=== PATIENT | female | born 1960 | race Two or more races ===

== ENCOUNTER 2024-05-14 09:30 | Emergency (ER) | payer MEDICAID, SELFPAY ==
--- NOTE | 2024-05-14 09:36 | EKG_ITS ---
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
[2024-05-14 09:59] VITALS: BP 185/97; PULSE 71; RESP 19; TEMP 36.6; O2SAT 97; BMI 35.4
--- NOTE | 2024-05-14 10:05 | XR_ITS ---
Examination: AP lateral chest 2 views Technique: Upright AP lateral chest 2 views Exam date and time: May 14, 2024 1015 hrs. Indications: Onset chest pain today Findings: Normal heart size No lobar pneumonia No pulmonary edema Moderate osteopenia Impression: No active disease
[2024-05-14 10:50] LABS: Basophils % (Auto) 1 % (0-2.5); Eosinophils # (Auto) 0.1 Thou/mm3 (0.0-0.5); Eosinophils % (Auto) 1 % (0-10); Hematocrit 42.2 % (36.0-46.0); Hemoglobin 14.1 g/dL (12.0-16.0); Immature Granulocytes % (Auto) 0 % (0-0); Immature Granulocytes Auto 0.02 Thou/mm3 (0.00-0.00); Lymphocytes # (Auto) 1.9 Thou/mm3 (1.0-4.8); Lymphocytes % (Auto) 30 % (10-50); Mean Corpuscular HGB Conc 33.4 g/dl (31.0-37.0); Mean Corpuscular Hemoglobin 30.9 pg (25.0-35.0); Mean Corpuscular Volume 92 fL (80-100); Monocytes # (Auto) 0.4 Thou/mm3 (0.0-0.8); Monocytes % (Auto) 6 % (0-12); Neutrophils # (Auto) 3.9 Thou/mm3 (1.8-7.7); Neutrophils % (Auto) 62 % (37-80); Nucleated Red Blood Cell % 0 /100 WBC (0); Platelet Count 204 Thou/mm3 (140-440); RDW Standard Deviation 43.4 fL (36.4-46.3); Red Blood Count 4.57 Miln/mm3 (4.00-5.20); White Blood Count 6.3 Thou/mm3 (3.6-11.0)
[2024-05-14 11:12] LABS: B-Type Natriuretic Peptide 43 pg/mL (0-100)
[2024-05-14 11:17] LABS: Alanine Aminotransferase 20 U/L (10-49); Albumin/Globulin Ratio 1.9 (1.2-2.2); Alkaline Phosphatase 94 U/L (46-116); Anion Gap 6 (7-16); Aspartate Amino Transferase 21 U/L (0-34); BUN/Creatinine Ratio 16 Ratio (12-20); Bilirubin,Total 0.6 mg/dL (0.3-1.2); Blood Urea Nitrogen 11 mg/dL (9-23); Calcium 9.5 mg/dL (8.3-10.6); Calcium (Corrected) 9.5 mg/dL (8.5-10.1); Carbon Dioxide 27.9 mMol/L (20.0-31.0); Chloride 105 mMol/L (98-107); Creatinine (Component) 0.7 mg/dL (0.6-1.3); Estimated Creatinine Clearance 74.7 mL/min (>60); Globulin 2.6 gm/dL (2.3-3.5); Glucose 97 mg/dL (74-106); Osmolality,Calculated 276 (275-295); Potassium 3.9 mMol/L (3.4-5.1); Sodium 139 mMol/L (136-145); Total Protein 7.6 gm/dL (5.7-8.2); Troponin I < 0.002 ng/mL (0.0-0.045); eGFR > 60 See Note
--- NOTE | 2024-05-14 11:54 | EDNOTE_ITS ---
<Statement entered by Abi Weinberg MD - 05/22/24 16:19> As co-signing physician, I was present and available for consult prn. I concur with the plan and care as documented by the midlevel provider. ED Chest Pain RME/HPI General Chief Complaint: Chest Pain Stated Complaint: CHEST/BACK PAIN FOR 2 DAYS Time Seen by Provider: 05/14/24 09:48 Arrival date/time: 05/14/24 09:30 64-year-old female presents emergency department complains of upper back pain and chest pain after exercising 2 days ago patient reports that she was lifting weights in the gym. Patient reports her pain is worse with movement patient reports no shortness of breath headache dizziness weakness Limitations: no limitations Related Data Home Medications ?Medication ?Instructions ?Recorded ?Confirmed lisinopril 20 mg tablet 20 mg PO QDAY ##0 06/30/13 08/23/21 atorvastatin 40 mg tablet 40 mg PO QDAY 08/23/21 08/23/21 cetirizine 10 mg tablet 10 mg PO QDAY 08/23/21 08/23/21 docusate sodium 100 mg capsule 100 mg PO BID 08/23/21 08/23/21 ergocalciferol (vitamin D2) 1,250 1,250 mcg PO QWEEK 08/23/21 08/23/21 mcg (50,000 unit) capsule Previous Rx's ?Medication ?Instructions ?Recorded methylprednisolone 4 mg tablets in See Rx Instructions .Route 11/16/21 a dose pack (Medrol (Rikki)) .COMPLEX #21 tabs ibuprofen 600 mg tablet 600 mg PO Q6H PRN pain #30 tabs 12/30/22 lidocaine 5 % topical patch 1 patch topical Q24H #6 ea 12/30/22 methocarbamol 750 mg tablet 750 mg PO Q8H PRN pain #20 tabs 12/30/22 Allergies Allergy/AdvReac Type Severity Reaction Status Date / Time ergotamine Allergy Severe HEART Verified 05/14/24 09:34 PALPITATIONS Review of Systems Review of Systems Systems Reviewed: All systems reviewed, normal except as documented Constitutional Constitutional: Reports system reviewed and no additional complaints, except as documented, Denies fever(s) and Denies headache(s) Eyes Eyes: Reports system reviewed and no additional complaints, except as documented and Denies blurry vision ENT Ears, Nose, Mouth, and Throat: Reports system reviewed and no additional complaints, except as documented, Denies headache(s), Denies nasal congestion and Denies nasal discharge Cardiovascular Cardiovascular: Reports system reviewed and no additional complaints, except as documented, Reports chest pain and Denies dyspnea Respiratory Respiratory: Reports system reviewed and no additional complaints, except as documented, Denies chest congestion, Denies cough and Denies dyspnea Gastrointestinal Gastrointestinal: Reports system reviewed and no additional complaints, except as documented and Denies abdominal pain Integumentary/Breasts Skin/Breast: Reports system reviewed and no additional complaints, except as documented and Denies rash Neurologic Neurologic: Reports system reviewed and no additional complaints, except as documented, Reports as per HPI and Denies headache(s) Past Medical History Past Medical History NEUROLOGIC: Negative Neurological Disorders CARDIAC: Negative Cardiac Disorders ED Exam General Limitations: Present no limitations General appearance: Present alert and in no apparent distress Head Head exam: Present atraumatic, normocephalic and normal inspection Eye Eye exam: Present normal appearance, PERRL and EOMI; Absent conjunctival injection ENT ENT exam: Present normal exam, normal oropharynx and mucous membranes moist Neck Neck exam: Present normal inspection, full ROM and trachea midline Chest Chest inspection: Present normal inspection and symmetric chest wall rise Respiratory Respiratory exam: Present normal lung sounds bilaterally; Absent respiratory distress Cardiovascular Cardiovascular exam: Present regular rate, normal rhythm and normal heart sounds; Absent bradycardia, tachycardia, irregular rhythm or JVD Abdominal Exam Abdominal exam: Present soft and normal bowel sounds; Absent distention, tenderness, guarding, rebound or rigidity Extremities Exam Extremities exam: Present normal inspection and full ROM Back Exam Back exam: Present normal inspection and full ROM Neurological Exam Neurological exam: Present alert, oriented X3 and CN II-XII intact Psychiatric Psychiatric exam: Present normal affect and normal mood Skin Skin exam: Present warm, dry, intact and normal color Course Quality Measures none Orders Category Date Time Status EKG (ED ONLY) *Do not use* NOW Care 05/14/24 09:36 Completed EKG (ED Only) Stat Exams 05/14/24 09:36 Draft XR chest 2V Stat Exams 05/14/24 10:05 Completed BNP [B-Type Natriuretic Peptide] Stat Lab 05/14/24 10:34 Completed CBC Stat Lab 05/14/24 10:34 Completed Comprehensive Metabolic Panel Stat Lab 05/14/24 10:34 Completed Troponin I Stat Lab 05/14/24 10:34 Completed Vital Signs Vital signs: Vital Signs Temperature 97.9 F 05/14/24 09:59 Pulse Rate 71 05/14/24 09:59 Respiratory Rate 19 05/14/24 09:59 Blood Pressure 185/97 H 05/14/24 09:59 Pulse Oximetry (%) 97 05/14/24 09:59 Oxygen Delivery Method Room Air 05/14/24 09:59 O2 saturation 97% room air within normal limits Procedures -ED EKG Interpretation #1: Date of EK05/14/24 Time of EK:57 Rate: 71 Interpretation: Interpreted by me EKG Impression: Normal sinus rhythm, No acute ST-T changes, No ectopy, No ischemic changes, Normal QRS, Normal intervals and Normal axis Chest Pain MDM Narrative MDM Narrative:: 64-year-old female presents emergency department complains of upper back pain and chest pain after exercising 2 days ago patient reports that she was lifting weights in the gym. Patient reports her pain is worse with movement patient reports no shortness of breath headache dizziness weakness On exam patient well-appearing patient does not appear ill or toxic I suspect this is muscular in nature and not cardiac Chest x-ray obtained lab work obtained no acute emergent findings noted EKG obtained no acute emergent findings noted Troponin is negative Symptoms consistent with muscular pain Patient discharged home in no distress to follow-up with primary care doctor in the next 24 to 48 hours and for any worsening symptoms to return to the ER immediately Patient data External records reviewed:: [facility] previous records Clinical information provided by:: patient Social determinants that could affect healthcare access:: none Patient has the following chronic illnesses:: See history How is presenting disease/condition affected by chronic disease/condition?: uneffected by Evaluation data The following diagnostics were reviewed and interpreted by me:: lab results, radiology exam(s) and EKG tracing(s) Lab and/or radiology exams considered but not ordered:: Labs, radiology, EKG obtained Interpretation Summary: Reviewed by me Medications / Prescriptions Medications or Prescriptions considered but not ordered:: No meds Medication administrations:: No meds Consultations Consultation(s) initiated? (list below): No Diagnosis Chest Pain Differential Diagnosis: atypical chest pain, st elevation myocardial infarction, costochondritis and chest pain Most likely diagnosis given after review of the tests above:: Chest pain Admission Indicated Admission indicated?: not indicated Admission Request Was there a request for admission?: No Disposition Plan Disposition Plan: Discharge Discharge Attestation Discharge Attestation: The patient and all family members were given an opportunity to ask questions and understood the discharge instructions. Discharge instructions specifically effects, indications for sooner follow up or return to the emergency department, and the expected course of current diagnosis. Patient condition: Stable Discharge Plan Plan Patient Disposition: HOME (Self Care) Disposition Comment: Stable Prescriptions/Referrals Prescriptions/Med Rec: No Action lisinopril 20 MG tablet 20 mg PO QDAY Qty: 0 docusate sodium 100 mg capsule 100 mg PO BID Patient Comments: TAKE 1 CAPSULE BY MOUTH TWICE A DAY ergocalciferol (vitamin D2) 1,250 mcg (50,000 unit) capsule 1,250 mcg PO QWEEK Patient Comments: TAKE 1 CAPSULE BY MOUTH ONCE A WEEK atorvastatin 40 mg tablet 40 mg PO QDAY Patient Comments: TAKE 1 TABLET BY MOUTH EVERY DAY cetirizine 10 mg tablet 10 mg PO QDAY Patient Comments: TAKE 1 TABLET BY MOUTH EVERY DAY methylprednisolone [Medrol (Rikki)] 4 mg tablets,dose pack See Rx Instructions .Route .COMPLEX Qty: 21 0RF Rx Instructions: 1 dose pack as directed ibuprofen 600 mg tablet 600 mg PO Q6H PRN (Reason: pain) Qty: 30 0RF methocarbamol 750 mg tablet 750 mg PO Q8H PRN (Reason: pain) Qty: 20 0RF lidocaine 5 % adhesive patch,medicated 1 patch topical Q24H Qty: 6 0RF Rx Instructions: leave on most painful area for up to 12 hrs Problem List Clinical Impression: Chest wall pain Patient/Caregiver Discharge Instructions Education Materials: ED Chest Pain, Noncardiac Additional Instructions: Please follow up with your primary care doctor in the next 24-48hrs for any worsening symptoms return here immediately Print Language: Tamazight Stand Alone Forms: Kae Award Info., Patient Portal Info Letter PA/MORTGAGE ORIGINATOR Supervising Physician PA/JACKY Supervising Physician: Dr. WEINBERG
== END 2024-05-14 12:07 | disposition home or self-care (01) ==
LOC: SERX 12:18
PROVIDERS: Nurse Practitioner Primary Care; Emergency Provider Emergency Medicine
DX: R07.89 Other chest pain (principal); M54.6 Pain in thoracic spine
CPT/HCPCS: 36415; 71046; 80053; 83880; 84484; 85025; 93005; 99283

== ENCOUNTER 2025-01-22 10:46 | Emergency (ER) | payer MEDICAID, SELFPAY ==
[2025-01-22 10:47] VITALS: BMI 37.4
--- NOTE | 2025-01-22 10:55 | EKG_ITS ---
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
[2025-01-22 11:07] VITALS: BP 178/74; PULSE 66; RESP 16; TEMP 36.9; O2SAT 99
--- NOTE | 2025-01-22 11:11 | XR_ITS ---
Examination: PA lateral chest 2 views TECHNIQUE: Upright PA lateral chest 2 views Date and time: January 22, 2025 1128 hours INDICATIONS: Chest pain today. FINDINGS: Poor inspiration. Normal heart size. The lungs are clear. IMPRESSION: Poor inspiratory effort chest x-ray
--- NOTE | 2025-01-22 11:12 | PD.EDRME ---
Rapid Medical Screening Exam RME Arrival date/time: 01/22/25 10:46 64-year-old female presents to the emergency department for concerns for chest pressure, frequent urination and generalized bodyaches Chief Complaint: Chest Pain Vital signs: Vital Signs Temperature 98.5 F 01/22/25 11:07 Pulse Rate 66 01/22/25 11:07 Respiratory Rate 16 01/22/25 11:07 Blood Pressure 178/74 H 01/22/25 11:07 Pulse Oximetry (%) 99 01/22/25 11:07 Oxygen Delivery Method Room Air 01/22/25 11:07
[2025-01-22 11:52] LABS: Collection Type, Urine Clean Catch
[2025-01-22 12:00] LABS: Bilirubin,Urine Negative (Negative); Blood,Urine Negative (Negative); Clarity,Urine Clear (Clear/Hazy); Color,Urine Colorless (Lt Yel-Yel); Culture Indicated,Urine Not Indicated; Glucose, Urine Negative (Negative); Hyaline Casts,Urine < 1 /hpf (0-1); Ketones,Urine Negative (Negative); Leukocyte Esterase,Urine Positive (Negative); Nitrite,Urine Negative (Negative); PH,Urine 7.0 (5.0-7.0); Protein,Urine Negative (Neg - Trace); RBC,Urine 2 /hpf (0-3); Specific Gravity,Urine 1.004 (1.001-1.035); Squamous Epithelial Cell,Urine 1 /hpf (0-5); Urobilinogen,Urine Negative mg/dL (0.0-1.0); WBC,Urine 1 /hpf (0-5)
[2025-01-22 12:16] LABS: Basophils # (Auto) 0.0 Thou/mm3 (0.0-0.2); Basophils % (Auto) 0 % (0-2.5); Eosinophils # (Auto) 0.0 Thou/mm3 (0.0-0.5); Eosinophils % (Auto) 0 % (0-10); Hematocrit 42.2 % (36.0-46.0); Hemoglobin 14.2 g/dL (12.0-16.0); Immature Granulocytes Auto 0.03 Thou/mm3 (0.00-0.00); Lymphocytes # (Auto) 2.0 Thou/mm3 (1.0-4.8); Lymphocytes % (Auto) 31 % (10-50); Mean Corpuscular HGB Conc 33.6 g/dl (31.0-37.0); Mean Corpuscular Hemoglobin 31.3 pg (25.0-35.0); Mean Corpuscular Volume 93 fL (80-100); Monocytes # (Auto) 0.4 Thou/mm3 (0.0-0.8); Monocytes % (Auto) 6 % (0-12); Neutrophils # (Auto) 4.0 Thou/mm3 (1.8-7.7); Neutrophils % (Auto) 62 % (37-80); Nucleated Red Blood Cell # 0.00 Thou/mm3 (0.00-0.00); Nucleated Red Blood Cell % 0 /100 WBC (0); Platelet Count 244 Thou/mm3 (140-440); RDW Standard Deviation 43.4 fL (36.4-46.3); Red Blood Count 4.54 Miln/mm3 (4.00-5.20); White Blood Count 6.5 Thou/mm3 (3.6-11.0)
[2025-01-22 12:24] LABS: Alanine Aminotransferase 22 U/L (10-49); Albumin, Serum 4.8 gm/dL (3.4-4.8); Albumin/Globulin Ratio 2.1 (1.2-2.2); Alkaline Phosphatase 96 U/L (46-116); Anion Gap 9 (7-16); Aspartate Amino Transferase 35 U/L (0-34); BUN/Creatinine Ratio 10 Ratio (12-20); Bilirubin,Total 0.6 mg/dL (0.3-1.2); Blood Urea Nitrogen 7 mg/dL (9-23); Calcium 9.7 mg/dL (8.3-10.6); Calcium (Corrected) 9.7 mg/dL (8.5-10.1); Carbon Dioxide 26.6 mMol/L (20.0-31.0); Chloride 104 mMol/L (98-107); Creatinine (Component) 0.7 mg/dL (0.6-1.3); Estimated Creatinine Clearance 69.9 mL/min (>60); Globulin 2.3 gm/dL (2.3-3.5); Glucose 92 mg/dL (74-106); Magnesium 2.2 mg/dL (1.6-2.6); Osmolality,Calculated 277 (275-295); Potassium 4.0 mMol/L (3.4-5.1); Sodium 140 mMol/L (136-145); Total Protein 7.1 gm/dL (5.7-8.2); Troponin I < 0.002 ng/mL (0.0-0.045); eGFR > 60 See Note
[2025-01-22 12:54] LABS: B-Type Natriuretic Peptide < 20 pg/mL (0-100)
[2025-01-22 13:11] LABS: INR 1.0 (0.9-1.3); Partial Thromboplastin Time 23.7 Seconds (22.0-36.0); Prothrombin Time 10.9 Seconds (9.0-12.2)
[2025-01-22 13:13] LABS: Glucose Estimated Average 111 mg/dL (80-131); Hemoglobin A1C 5.5 % Hgb (4.8-6.0)
--- NOTE | 2025-01-22 14:42 | PD.EDCHEST ---
ED Chest Pain RME/HPI General Chief Complaint: Chest Pain Stated Complaint: CHEST PAIN & UPPER BACK PAIN X1WEEK Time Seen by Provider: 01/22/25 11:14 Arrival date/time: 01/22/25 10:46 Limitations: no limitations RME / HPI RME / HPI narrative: 01/22/25 10:46 64-year-old female presents to the emergency department for concerns for chest pressure, frequent urination and generalized bodyaches DR. TSE MAIN ED EVALUATION: 64 year old female with history of hypertension presents to the ED for evaluation of a burning chest pain, myalgias, and headache after receiving a cholesterol injection 1 week ago. Accompanied by feeling anxious. Denies any associated shortness of breath, abdominal pain, n/v/d, or dysuria. No known modifying factors. During my evaluation in the ED, reports her symptoms have resolved. Related Data Home Medications ?Medication ?Instructions ?Recorded ?Confirmed lisinopril 20 mg tablet 20 mg PO QDAY ##0 06/30/13 08/23/21 atorvastatin 40 mg tablet 40 mg PO QDAY 08/23/21 08/23/21 cetirizine 10 mg tablet 10 mg PO QDAY 08/23/21 08/23/21 docusate sodium 100 mg capsule 100 mg PO BID 08/23/21 08/23/21 ergocalciferol (vitamin D2) 1,250 1,250 mcg PO QWEEK 08/23/21 08/23/21 mcg (50,000 unit) capsule Previous Rx's ?Medication ?Instructions ?Recorded methylprednisolone 4 mg tablets in See Rx Instructions .Route 11/16/21 a dose pack (Medrol (Rikki)) .COMPLEX #21 tabs ibuprofen 600 mg tablet 600 mg PO Q6H PRN pain #30 tabs 12/30/22 lidocaine 5 % topical patch 1 patch topical Q24H #6 ea 12/30/22 methocarbamol 750 mg tablet 750 mg PO Q8H PRN pain #20 tabs 12/30/22 Allergies Allergy/AdvReac Type Severity Reaction Status Date / Time ergotamine Allergy Severe HEART Verified 01/22/25 10:52 PALPITATIONS Review of Systems Review of Systems Systems Reviewed: All systems reviewed, normal except as documented Past Medical History Past Medical History CARDIAC: Positive Hypercholesterolemia and Hypertension RESPIRATORY: Positive Bronchitis Surgical History SURGICAL: Positive Hysterectomy Social History SMOKING STATUS: Never smoker SUBSTANCE USE: does not use ED Exam General Limitations: Present no limitations General appearance: Present alert and in no apparent distress Head Head exam: Present atraumatic Eye Eye exam: Present normal appearance, PERRL and EOMI ENT ENT exam: Present normal exam, normal oropharynx and mucous membranes moist Neck Neck exam: Present normal inspection, full ROM and trachea midline Chest Chest inspection: Present normal inspection and symmetric chest wall rise Respiratory Respiratory exam: Present normal lung sounds bilaterally Cardiovascular Cardiovascular exam: Present regular rate, normal rhythm and normal heart sounds Abdominal Exam Abdominal exam: Present soft and normal bowel sounds Extremities Exam Extremities exam: Present normal inspection and full ROM Back Exam Back exam: Present normal inspection and full ROM Neurological Exam Neurological exam: Present alert, oriented X3 and CN II-XII intact Psychiatric Psychiatric exam: Present normal affect and normal mood Skin Skin exam: Present warm, dry, intact and normal color Course Quality Measures none Orders Category Date Time Status EKG (ED ONLY) *Do not use* NOW Care 01/22/25 10:55 Completed EKG (ED Only) Stat Exams 01/22/25 10:55 Draft XR chest 2V Stat Exams 01/22/25 11:11 Completed A1C [Glycohemoglobin w (eAG)] Stat Lab 01/22/25 10:50 Completed B-Type Natriuretic Peptide Stat Lab 01/22/25 10:50 Completed CBC Stat Lab 01/22/25 10:50 Completed Comprehensive Metabolic Panel Stat Lab 01/22/25 10:50 Completed Magnesium Stat Lab 01/22/25 10:50 Completed Partial Thromboplastin Time Stat Lab 01/22/25 10:50 Completed Prothrombin Time with INR Stat Lab 01/22/25 10:50 Completed Troponin I Stat Lab 01/22/25 10:50 Completed Urinalysis, C/S if Indicated Stat Lab 01/22/25 11:45 Completed cloNIDine HCL [Catapres] Med 01/22/25 14:41 Discontinued 0.1 mg PO X1 ONE Vital Signs Vital signs: Vital Signs Temperature 98.5 F 01/22/25 11:07 Pulse Rate 66 01/22/25 11:07 Respiratory Rate 16 01/22/25 11:07 Blood Pressure 178/74 H 01/22/25 11:07 Pulse Oximetry (%) 99 01/22/25 11:07 Oxygen Delivery Method Room Air 01/22/25 11:07 Pulse ox is 99% on room air which is adequate. Chest Pain MDM Narrative MDM Narrative:: Rica Augsutin am scribing for and in the presence of Dr. Tse. Patient data External records reviewed:: [facility] previous records (I reviewed ED visit on 05/14/2024 ) Clinical information provided by:: patient Social determinants that could affect healthcare access:: none Patient has the following chronic illnesses:: HTN How is presenting disease/condition affected by chronic disease/condition?: exacerbated by Evaluation data The following diagnostics were reviewed and interpreted by me:: lab results, radiology exam(s) and EKG tracing(s) (EKG @ 11:03 AM NSR, rate 66, no acute ischemic changes, no STEMI. ) Lab and/or radiology exams considered but not ordered:: None Interpretation Summary: Ordering Physician: Miky ULLOA)Luis Carlos NP Date of Service: 01/22/25 Procedure(s): XR chest 2V Accession Number(s): [id number] cc: Miky ULLOA),Luis Carlos JACKSON; Luis Carlos Jordan MD; NO PRIMARY/FAMILY,PHYSICIAN~ Examination: PA lateral chest 2 views TECHNIQUE: Upright PA lateral chest 2 views Date and time: January 22, 2025 1128 hours INDICATIONS: Chest pain today. FINDINGS: Poor inspiration. Normal heart size. The lungs are clear. IMPRESSION: Poor inspiratory effort chest x-ray Dictated By: Luis Carlos Jordan MD Signed By: <Electronically signed by Luis Carlos Jordan MD in OV> 01/22/25 1139 Medications / Prescriptions Medications or Prescriptions considered but not ordered:: None Medication administrations:: Medication Administration History Discontinued Medications Clonidine (Clonidine Hcl 0.1 Mg Tablet) 0.1 mg PO X1 ONE Stop: 01/22/25 14:42 Last Admin: 01/22/25 14:48 Dose: 0.1 mg Documented By: See above Consultations Consultation(s) initiated? (list below): No Diagnosis Chest Pain Differential Diagnosis: stable angina, unstable angina pectoris, atypical chest pain, st elevation myocardial infarction, costochondritis, chest pain and biliary colic Most likely diagnosis given after review of the tests above:: Chest pain Hypertension Admission Indicated Admission indicated?: not indicated Admission Request Was there a request for admission?: No Disposition Plan Disposition Plan: Discharge Discharge Attestation Discharge Attestation: The patient and all family members were given an opportunity to ask questions and understood the discharge instructions. Discharge instructions specifically effects, indications for sooner follow up or return to the emergency department, and the expected course of current diagnosis. Patient condition: Stable Critical Care Time Critical Care Time Critical Care Time: No Discharge Plan Plan Patient Disposition: HOME (Self Care) Prescriptions/Referrals Prescriptions/Med Rec: No Action lisinopril 20 MG tablet 20 mg PO QDAY Qty: 0 docusate sodium 100 mg capsule 100 mg PO BID Patient Comments: TAKE 1 CAPSULE BY MOUTH TWICE A DAY ergocalciferol (vitamin D2) 1,250 mcg (50,000 unit) capsule 1,250 mcg PO QWEEK Patient Comments: TAKE 1 CAPSULE BY MOUTH ONCE A WEEK atorvastatin 40 mg tablet 40 mg PO QDAY Patient Comments: TAKE 1 TABLET BY MOUTH EVERY DAY cetirizine 10 mg tablet 10 mg PO QDAY Patient Comments: TAKE 1 TABLET BY MOUTH EVERY DAY methylprednisolone [Medrol (Rikki)] 4 mg tablets,dose pack See Rx Instructions .Route .COMPLEX Qty: 21 0RF Rx Instructions: 1 dose pack as directed ibuprofen 600 mg tablet 600 mg PO Q6H PRN (Reason: pain) Qty: 30 0RF methocarbamol 750 mg tablet 750 mg PO Q8H PRN (Reason: pain) Qty: 20 0RF lidocaine 5 % adhesive patch,medicated 1 patch topical Q24H Qty: 6 0RF Rx Instructions: leave on most painful area for up to 12 hrs Referrals: No Primary/Family,Physician [Primary Care Provider] - In 1 week Problem List Clinical Impression: Chest pain, Hypertension Patient/Caregiver Discharge Instructions Education Materials: ED Chest Pain, Uncertain Cause Additional Instructions: Follow-up with your primary care doctor in 3 to 5 days for referral to medical coding instructor for stress test. You can return to the emergency department sooner if symptoms worsen or if you notice any new, concerning issues. Continue your normal medications. Print Language: Montenegrin Stand Alone Forms: Kae Award Info., Patient Portal Info Letter
[2025-01-22 14:48] VITALS: BP 193/81; PULSE 72
== END 2025-01-22 15:06 | disposition home or self-care (01) ==
PROVIDERS: Nurse Practitioner Primary Care; Emergency Provider Family Medicine
DX: R07.9 Chest pain, unspecified (principal); I10 Essential (primary) hypertension
CPT/HCPCS: 36415; 71046; 80053; 81001; 83036; 83735; 83880; 84484; 85025; 85610; 85730; 93005; 99284; A9270

== ENCOUNTER → 2025-03-31 | Outpatient (CLI) | payer MEDICARE, MEDICAID, SELFPAY ==
--- NOTE | 2025-03-31 17:00 | XR_ITS ---
Examination: MRI brain without intravenous contrast. Date and time of exam: March 31, 2025, 1720 hours INDICATIONS: Intractable headaches numbness to the forehead 2 months Technique: Multiple axial and sagittal images of the brain obtained. Siemens high-resolution 1.5 Cristina short bore scanners utilized. Sagittal sections, T1-weighted, TR 500, TE 14, are performed. Axial sections proton-density and T2-weighted have been obtained. Inversion recovery axial images, TR 9, 260, TE 111, TI 2500. Diffusion weighted images, axial sections, TR 4800, TE 128, B value 1000 Axial sections, ADC map, TR 4800, TE 128 Findings: Enlargement of the sella turcica is not present. The optic chiasm and infundibular are not remarkable. Prepontine and interpeduncular cisterns are not enlarged. There is no localized enlargement of the medulla or gustavo. Fourth ventricle and cerebellar tonsils appear normal in position. No subacute area of hemorrhage density is seen. Mass in the cerebellopontine angle region is not evident. Globes symmetrical. Orbital musculature including medial lateral rectus muscles do not exhibit abnormality. Diffusion-weighted images demonstrate no focus of restricted diffusion. Increased white matter signal moderate Mass effect upon the ventricular system is not identified. Impression: Negative for acute hemorrhage, mass effect or midline shift No acute infarct Moderate chronic microvascular white matter change
== END | disposition home or self-care (01) ==
PROVIDERS: PCP Physician Assistant; Referring Provider Obstetrics & Gynecology; Visit Provider Obstetrics & Gynecology
DX: R90.82 White matter disease, unspecified (principal)
CPT/HCPCS: 70551